=== PATIENT | female | born 1985 ===

== ENCOUNTER 2024-12-23 01:27 | Outpatient (CLI) | payer OTHER, SELFPAY ==
--- NOTE | 2024-12-23 | DI.RAD_ITS ---
Exam(s) XR HAND LT LIMITED EXAM: XR HAND LT LIMITED CLINICAL HISTORY: Lt index finger sprain, S63.611A, VES #[id number]. TECHNIQUE: 2D digital imaging was performed. Two views. COMPARISON: No exams were available for comparison FINDINGS: BONES: No acute fracture is present. No bony destructive lesion is seen. JOINTS: No dislocation present. SOFT TISSUE: Normal. IMPRESSION: Unremarkable radiographs of the left hand. DATA REPOSITORY: RADIATION DOSE DELIVERED:
== END 2024-12-23 01:47 ==
PROVIDERS: PCP Physician Assistant Medical; Visit Provider Chiropractor
DX: S63.611D Unspecified sprain of left index finger, subsequent encounter (principal); X58.XXXD Exposure to other specified factors, subsequent encounter
CPT/HCPCS: 73120